=== PATIENT | female | born 1960 | race Caucasian/White ===

== ENCOUNTER → 2022-06-11 09:45 | Outpatient (BNVA) | payer MEDICARE, SELFPAY | PROVIDERS: Family Provider Nurse Practitioner; Visit Provider Nurse Practitioner Women's Health | DX: N95.0 Postmenopausal bleeding (principal); I10 Essential (primary) hypertension; E78.5 Hyperlipidemia, unspecified | CPT/HCPCS: 84443; 87624; 88305 ==

== ENCOUNTER 2022-09-02 07:45 | Day surgery (SDC) | payer MEDICARE, SELFPAY ==
[2022-08-31 09:21] VITALS: BMI 45.0
[2022-09-02] VITALS (8 sets, daily range): BP systolic 129–162; BP diastolic 59–98; PULSE 69–90; RESP 14–19; TEMP 36.3–36.9; O2SAT 92–99
[2022-09-02] MEDS: sodium chloride 0.9% 500 ML IV (08:34)
[2022-09-02] MEDS: scopolamine 1.5 Patch 1 PATCH TRANSDERMA (08:34)
[2022-09-02] MEDS: enoxaparin 30 mg/0.3 mL Syringe SUBCUT (08:34)
[2022-09-02 08:44] LABS: Bilirubin Urine Neg (Negative); Blood Urine Neg (Negative); Glucose Urine UA Norm (Normal); Ketones Urine Negative (Negative); Leukocyte Esterase Urine 2+ (Negative); Nitrate Urine Negative (Negative); Protein Urine 1+ (Negative); Specific Gravity, Urine 1.015 (1.005-1.030); Urine Appearance Clear (CLEAR); Urine Color Yellow (Yellow); Urobilinogen Urine Neg (Negative); pH Urine 6 (5-7)
[2022-09-02 08:55] LABS: Add Urine Culture? No; Add Urine Microscopic? YES; Bacteria Urine 1+ /hpf; RBC Urine 0-4 /hpf (0-2); Transitional Epi Cells Urine 0-4 /hpf; WBC Urine 0-4 /hpf (0-5)
[2022-09-02 09:16] LABS: Basophils % 0.6 %; Eosinophils # 0.2 10^3/uL (0.0-0.8); Eosinophils % 3.4 %; Hematocrit 43.4 % (37.0-47.0); Hemoglobin 14.1 g/dL (11.5-15.3); Lymphocytes # 1.5 10^3/uL (0.8-4.8); Lymphocytes % 22.4 %; Mean Corpuscular HGB Conc 32.5 g/dL (30.0-36.0); Mean Corpuscular Hemoglobin 29.3 pg (28.0-34.0); Mean Corpuscular Volume 90.2 fl (81-99); Mean Platelet Volume 9.7 fL (7.4-10.4); Monocytes # 0.7 10^3/uL (0.2-0.9); Monocytes % 10.1 %; Neutrophils # 4.34 10^3/uL (1.8-7.7); Neutrophils % 63.2 %; Nucleated Red Blood Cells % 0 %; Platelet Count 215 10^3/cmm (130-400); Red Blood Count 4.81 10^6/uL (4.1-5.3); Red Cell Distribution Width 14.6 % (12.1-15.1); White Blood Count 6.9 10^3/uL (4.0-10.0)
--- NOTE | 2022-09-02 09:23 | P.ANESASSM_ITS ---
Pre-Anesthetic Assessment Height/Weight: Height 1.59 m Weight 113.398 kg Temp Pulse Resp BP Pulse Ox O2 Del Method 98.5 F 70 18 162/98 94 09/02/22 08:09 09/02/22 08:09 09/02/22 08:09 09/02/22 08:09 09/02/22 08:09 09/02/22 08:09 Preop Diagnosis: Postmenopausal bleeding, endometrial polyp Operation Date: 09/02/22 09:20 Proposed Procedures p Hysteroscopic polypectomy [facility] Myosure 90117,N84.0(Not Applicable) - Skinny Momin MD Familial anesthetic complications: None Was Beta Héctor taken within 24 hours: N/A Was Clonidine taken within 24 hours: N/A Last intake: Intake Last Liquid Date 09/01/22 Last Liquid Time 19:00 Last Solid Date 09/01/22 Last Solid Time 19:00 Social No alcohol and No tobacco Exam alert, oriented x 3, clear to auscultation bilaterally and regular rate & rhythm Airway Mallampati: Class III Dentition: other (none) CV/HEM Hypertension Metabolic Hyperlipidemia and Morbid Obesity Neuropsych Cerebrovascular Accident Anesthetic Plan ASA status: 3 Anesthesia: General Risk of > 500 ml blood loss (7ml/kg in children): No Medications/Allergies Home Medications Medication Instructions Recorded Confirmed Last Taken Type acetaminophen 325 mg capsule 325 mg PO QID PRN Pain 06/11/22 09/02/22 08/25/22 History (Tylenol) aspirin 81 mg tablet,delayed 81 mg PO DAILY 06/11/22 09/02/22 08/30/22 History release (Adult Aspirin Regimen) docusate sodium 100 mg capsule 100 mg PO DAILY 06/11/22 09/02/22 09/01/22 History (Dulcolax Stool Softener (docusate)) hydrochlorothiazide 12.5 mg capsule 12.5 mg PO DAILY 06/11/22 09/02/22 09/01/22 History losartan 100 mg tablet 100 mg PO DAILY 06/11/22 09/02/22 09/01/22 History lovastatin 40 mg tablet 40 mg PO DAILY 06/11/22 09/02/22 09/01/22 History ynoheose-sfz-rlqtx ac 400 1 tab PO DAILY 06/11/22 09/02/22 09/01/22 History mcg-calcium carb 500 mg-vit K1 20 mcg tablet (Women's 50 Plus Multivitamin) Allergies Allergy/AdvReac Type Severity Reaction Status Date / Time acetaminophen [From [place]] Allergy ADR-Itching Verified 09/02/22 08:06 amoxicillin Allergy ADR-Itching Verified 09/02/22 08:06 cefdinir Allergy ADR-Diarrhe Verified 09/02/22 08:06 a ezetimibe Allergy ADR-Itching Verified 09/02/22 08:06 hydrocodone [From [place]] Allergy ADR-Itching Verified 09/02/22 08:06 pravastatin Allergy Unknown Verified 09/02/22 08:06 propoxyphene Allergy ADR-Itching Verified 09/02/22 08:06 [facility] Anesthesia Medical History (Updated 08/15/22 @ 20:16 by Skinny Momin MD) Cognitive and behavioral changes (~2013) Status post CVA Expressive aphasia History of CVA (cerebrovascular accident) (~11/2013) Hypertension Inflammatory arthritis Mixed hyperlipidemia No pertinent past medical history neghx: dm,thyroid,dvt/pe PCP: Mila Trujillo Surgical History (Updated 07/01/22 @ 10:55 by Briana Curry APN, ROZINA) H/O bladder repair surgery reports mesh placed Hx of section (~1987) Hx of cholecystectomy (~2014) Hx of colonoscopy Hx of right knee surgery (~2014) Hx of tubal ligation (~1987) Family History Father Diabetes Stroke Mother Heart disease Hypercholesteremia Hypertension Denies family history of Colon cancer Ovarian cancer Breast cancer Uterine cancer Thyroid disease Social History Smoking and tobacco status: never smoked Data Anesthesia : 09/02/22 08:35 09/02/22 08:35 Short CBC 09/02/22 Range/Units 08:35 WBC 6.9 (4.0-10.0) 10^3/uL Hgb 14.1 (11.5-15.3) g/dL Hct 43.4 (37.0-47.0) % MCV 90.2 (81-99) fl Plt Count 215 (130-400) 10^3/cmm Neut % (Auto) 63.2 % Neut # (Auto) 4.34 (1.8-7.7) 10^3/uL Urine 09/02/22 Range/Units 08:05 Urine Color Yellow (Yellow) Urine Appearance Clear (CLEAR) Urine pH 6 (5-7) Ur Specific [place] 1.015 (1.005-1.030) Urine Protein 1+ H (Negative) Urine Glucose (UA) Norm (Normal) Urine Ketones Negative (Negative) Urine Nitrate Negative (Negative) Urine Bilirubin Neg (Negative) Ur Leukocyte Esterase 2+ H (Negative) Urine RBC 0-4 H (0-2) /hpf Urine WBC 0-4 H (0-5) /hpf Cardiac Studies: No Data to Display
[2022-09-02] MEDS: vancomycin 1,000 MG in sodium chloride 0.9% 250 ML 250 MG IV (10:06)
[2022-09-02 10:29] LABS: Alanine Aminotransferase 17 U/L (0-33); Albumin Level 3.6 g/dL (3.5-5.2); Alkaline Phosphatase 85 U/L (35-105); Anion Gap 12.9 (5-19); Aspartate Amino Transferase 18 U/L (0-32); Blood Urea Nitrogen 7 mg/dL (8-23); Calcium 8.9 mg/dL (8.5-10.5); Carbon Dioxide 30 mmol/L (22-29); Chloride 103 mmol/L (98-107); Globulin 2.7 g/dL (1.3-4.6); Glomerular Filtration Rate 72.7 mL/min (90-130); Glucose 106 mg/dL (65-115); Osmolality Calculated 292 mOsm/kg (285-295); Potassium 3.9 mmol/L (3.5-5.1); Sodium 142 mmol/L (136-145); Total Bilirubin 0.6 mg/dL (0.15-1.2); Total Protein 6.3 g/dL (6.6-8.7)
--- NOTE | 2022-09-02 10:31 | P.HPUD_ITS ---
Surgery/Procedure H&P Update DATE OF PROCEDURE: September 02, 2022 DATE H&P PERFORMED: 08/30/22 H&P UPDATE INFORMATION: I have reviewed H&P completed within last 30 days, I have examined patient prior to procedure and No changes to prior documentation PREOP DIAGNOSIS: Postmenopausal bleeding, endometrial polyp PLANNED PROCEDURE: Operation Date: 09/02/22 09:20 Proposed Procedures p Hysteroscopic polypectomy [facility] Myosure 82042,N84.0(Not Applicable) - Skinny Momin MD
--- NOTE | 2022-09-02 11:34 | PM.OP ---
Operative Report Date of procedure: September 02, 2022 Pre-op diagnosis: Preop Diagnosis Postmenopausal bleeding, endometrial polyp Post-op diagnosis: Same as above Post-op findings: Endometrial polyp Procedure done: Hysteroscopy Hysteroscopic polypectomy Specimens removed/disposition: Endometrial polyp Surgeon: Skinny Momin MD Estimated blood loss (mL): 10 IV fluids (mL): 1,000 Complications: None Brief History: Mrs. Hughes 62-year-old female with postmenopausal bleeding diagnosed with endometrial polyp Procedure: After informed consent, the risks included but were not limited to bleeding, infection, injury to internal organs. The patient was counseled on a possible laparotomy and on the potential need for hysterectomy. The patient expressed understanding of the risks involved, all questions were answered, and the patient consented to the procedure. The patient was taken to the operating room where general anesthesia was administered. She was placed in the dorsal lithotomy position and prepped and draped in sterile fashion. A time out procedure was performed. The patient was examined under anesthesia and found to have a normal uterus with normal adnexa. A sterile weight speculum was placed in the vagina. The uterus was then gently sounded to 9 cm, and the cervix was dilated. The 0 degrees MyoSure hysteroscope was advanced gently to the uterine fundus while visualizing the monitor. Survey of the uterine cavity showed: a pedunculated endometrial polyp on posterior wall, the fundus shows atrophic endometrium; left ostium was visualized, and lateral wall with atrophic endometrium; right ostium visualized, and lateral wall with atrophic endometrium; anterior and posterior quinn are with atrophic endometrium; endocervical canal is normal. The MyoSure device was advanced and the direct visualization the polyp was morcellated without complication. At the end of morcellation the fluid deficit was 243 mL and was estimated at approximately 200 mL were on the floor. There was minimal bleeding noted and the tenaculum removed with goad hemostasis noted. The patient tolerated the procedure well. The patient was taken to the recovery area in stable condition.
--- NOTE | 2022-09-02 13:59 | ANE.PACU2 ---
Inpatient post-anesthesia follow up: Airway intact: Yes Vital signs: Temperature 97.7 F Pulse Rate 72 Respiratory Rate 18 Blood Pressure 129/70 Pulse Oximetry 94 Oxygen Delivery Me thod Room Air Oxygen Flow Rate 6 Fraction of Inspir ed Oxygen Hydration adequate: Yes Nausea and vomiting: No Pain level: 1 Mental status: Baseline
== END 2022-09-02 12:48 | disposition home or self-care (01) ==
PROVIDERS: PCP Family Medicine; Visit Provider Obstetrics & Gynecology
PROC: 0UDB8ZZ Extraction of Endometrium, Via Natural or Artificial Opening Endoscopic (ICD-10-PCS; CPT 58558; principal; 2022-09-02 09:10)
DX: N93.9 Abnormal uterine and vaginal bleeding, unspecified (principal); I10 Essential (primary) hypertension; E66.01 Morbid (severe) obesity due to excess calories; Z68.42 Body mass index [BMI] 45.0-49.9, adult; Z86.73 Personal history of transient ischemic attack (TIA), and cerebral infarction without residual deficits; E78.2 Mixed hyperlipidemia; Z79.82 Long term (current) use of aspirin
CPT/HCPCS: 58558; 36415; 80053; 81001; 85025; 86850; 86900; 88305; J1100; J1650; J2405; J2704; J2710; J3010; J3370; J3490; J7040; J7050

== ENCOUNTER 2022-10-27 09:59 | Inpatient (IN) | payer MEDICARE, SELFPAY ==
[2022-10-25 13:30] VITALS: BMI 43.5
[2022-10-25 14:18] LABS: Basophils # 0.1 10^3/uL (0.0-0.1); Basophils % 0.7 %; Eosinophils # 0.4 10^3/uL (0.0-0.8); Eosinophils % 5.6 %; Hematocrit 45.3 % (37.0-47.0); Hemoglobin 14.9 g/dL (11.5-15.3); Lymphocytes # 1.5 10^3/uL (0.8-4.8); Lymphocytes % 19.4 %; Mean Corpuscular HGB Conc 32.9 g/dL (30.0-36.0); Mean Corpuscular Hemoglobin 28.9 pg (28.0-34.0); Mean Corpuscular Volume 87.8 fl (81-99); Mean Platelet Volume 9.5 fL (7.4-10.4); Monocytes # 0.6 10^3/uL (0.2-0.9); Monocytes % 8.3 %; Neutrophils # 4.92 10^3/uL (1.8-7.7); Neutrophils % 65.7 %; Nucleated Red Blood Cells % 0 %; Platelet Count 260 10^3/cmm (130-400); Red Blood Count 5.16 10^6/uL (4.1-5.3); Red Cell Distribution Width 14.6 % (12.1-15.1); White Blood Count 7.5 10^3/uL (4.0-10.0)
[2022-10-25 14:38] LABS: Urine Color Straw (Yellow)
[2022-10-25 14:39] LABS: Add Urine Microscopic? YES; Bilirubin Urine Neg (Negative); Blood Urine 3+ (Negative); Glucose Urine UA Norm (Normal); Ketones Urine Negative (Negative); Leukocyte Esterase Urine Trace (Negative); Nitrate Urine Negative (Negative); Protein Urine Neg (Negative); Urine Appearance Clear (CLEAR); Urobilinogen Urine Norm (Negative); pH Urine 6 (5-7)
[2022-10-25 14:40] LABS: Alanine Aminotransferase 22 U/L (0-33); Alkaline Phosphatase 110 U/L (35-105); Anion Gap 14.7 (5-19); Aspartate Amino Transferase 17 U/L (0-32); Bacteria Urine TRACE /hpf; Blood Urea Nitrogen 13 mg/dL (8-23); Calcium 9.9 mg/dL (8.5-10.5); Carbon Dioxide 28 mmol/L (22-29); Chloride 100 mmol/L (98-107); Globulin 3.3 g/dL (1.3-4.6); Glomerular Filtration Rate 72.7 mL/min (90-130); Glucose 98 mg/dL (65-115); Osmolality Calculated 288 mOsm/kg (285-295); Potassium 3.7 mmol/L (3.5-5.1); RBC Urine 0-4 /hpf (0-2); Sodium 139 mmol/L (136-145); Squamous Epithelial Cell Urine RARE /hpf (0-5); Total Bilirubin 0.5 mg/dL (0.15-1.2); Total Protein 7.3 g/dL (6.6-8.7); WBC Urine 0-4 /hpf (0-5)
[2022-10-25 14:41] LABS: Add Urine Culture? No
--- NOTE | 2022-10-25 17:06 | P.ANESASSM_ITS ---
Pre-Anesthetic Assessment Height/Weight: Height 1.59 m Weight 109.769 kg Preop Diagnosis: Postmenopausal bleeding, endometrial polyp Operation Date: 10/27/22 07:00 Proposed Procedures p Total abdominal hysterectomy, bilateral salpingo-ophorectomy 87751 N95.0,N85 .2(Not Applicable) - Skinny Momin MD s Salpingo Oophorectomy (Open)(Bilateral) - Skinny Momin MD Familial anesthetic complications: Slow to wake up Was Beta Héctor taken within 24 hours: N/A Was Clonidine taken within 24 hours: N/A Social No alcohol and No tobacco Exam alert, oriented x 3, clear to auscultation bilaterally and regular rate & rhythm Airway Submandibular: within normal limits Cervical ROM: within normal limits Mallampati: Class II Dentition: false CV/HEM Hypertension Metabolic Hyperlipidemia and Morbid Obesity Musc/skel Osteoarthritis/DJD Neuropsych Cerebrovascular Accident and Deficit (decreased sensation) Anesthetic Plan ASA status: 3 Anesthesia: General Medications/Allergies Home Medications Medication Instructions Recorded Confirmed Last Taken Type acetaminophen 325 mg capsule 325 mg PO QID PRN Pain 06/11/22 10/25/22 08/25/22 History (Tylenol) aspirin 81 mg tablet,delayed 81 mg PO DAILY 06/11/22 10/25/22 10/25/22 History release (Adult Aspirin Regimen) docusate sodium 100 mg capsule 100 mg PO DAILY 06/11/22 10/25/22 10/25/22 History (Dulcolax Stool Softener (docusate)) hydrochlorothiazide 12.5 mg capsule 12.5 mg PO DAILY 06/11/22 10/25/22 10/25/22 History losartan 100 mg tablet 100 mg PO DAILY 06/11/22 10/25/22 10/25/22 History lovastatin 40 mg tablet 40 mg PO DAILY 06/11/22 10/25/22 10/24/22 History mpwexunu-uoy-ctzdt ac 400 1 tab PO DAILY 06/11/22 10/25/22 10/25/22 History mcg-calcium carb 500 mg-vit K1 20 mcg tablet (Women's 50 Plus Multivitamin) ibuprofen 800 mg tablet 800 mg PO TID PRN pain #60 tabs 09/02/22 10/25/22 10/24/22 Rx Allergies Allergy/AdvReac Type Severity Reaction Status Date / Time acetaminophen [From [place]] Allergy ADR-Itching Verified 10/25/22 11:20 amoxicillin Allergy ADR-Itching Verified 10/25/22 11:20 cefdinir Allergy ADR-Diarrhe Verified 10/25/22 11:20 a ezetimibe Allergy ADR-Itching Verified 10/25/22 11:20 hydrocodone [From [place]] Allergy ADR-Itching Verified 10/25/22 11:20 pravastatin Allergy Unknown Verified 10/25/22 11:20 propoxyphene Allergy ADR-Itching Verified 10/25/22 11:20 [facility] Anesthesia Medical History (Updated 09/14/22 @ 11:49 by Skinny Momin MD) Aftercare following surgery of the genitourinary system Cognitive and behavioral changes (~2013) Status post CVA Expressive aphasia History of CVA (cerebrovascular accident) (~11/2013) Hypertension Inflammatory arthritis Mixed hyperlipidemia No pertinent past medical history neghx: dm,thyroid,dvt/pe PCP: Mila Trujillo Surgical History (Updated 10/25/22 @ 11:22 by Mireya Panchal RN) H/O bladder repair surgery reports mesh placed Hx of section (~1987) Hx of cholecystectomy (~2014) Hx of colonoscopy Hx of right knee surgery (~2014) Hx of tubal ligation (~1987) Status post hysteroscopic polypectomy 09/14/2022: Hysteroscopy and hysteroscopic polypectomy performed by Dr. Momin at [facility] Family History Father Diabetes Stroke Mother Heart disease Hypercholesteremia Hypertension Denies family history of Colon cancer Ovarian cancer Breast cancer Uterine cancer Thyroid disease Social History Smoking and tobacco status: never smoked Data Anesthesia 10/25/22 13:44 10/25/22 13:44 Short CBC 10/25/22 Range/Units 13:44 WBC 7.5 (4.0-10.0) 10^3/uL Hgb 14.9 (11.5-15.3) g/dL Hct 45.3 (37.0-47.0) % MCV 87.8 (81-99) fl Plt Count 260 (130-400) 10^3/cmm Neut % (Auto) 65.7 % Neut # (Auto) 4.92 (1.8-7.7) 10^3/uL BMP 10/25/22 13:44 Sodium 139 Potassium 3.7 Chloride 100 Carbon Dioxide 28 BUN 13 Creatinine 0.8 Glucose 98 Calcium 9.9 Liver Function 10/25/22 Range/Units 13:44 Total Bilirubin 0.5 (0.15-1.2) mg/dL AST 17 (0-32) U/L ALT 22 (0-33) U/L Alkaline Phosphatase 110 H (35-105) U/L Albumin 4.0 (3.5-5.2) g/dL Urine 10/25/22 Range/Units 13:44 Urine Color Straw (Yellow) Urine Appearance Clear (CLEAR) Urine pH 6 (5-7) Ur Specific [place] 1.010 (1.005-1.030) Urine Protein Neg (Negative) Urine Glucose (UA) Norm (Normal) Urine Ketones Negative (Negative) Urine Nitrate Negative (Negative) Urine Bilirubin Neg (Negative) Ur Leukocyte Esterase Trace H (Negative) Urine RBC 0-4 H (0-2) /hpf Urine WBC 0-4 H (0-5) /hpf Blood Bank 10/25/22 13:44 Blood Type O Positive Rho(D) Type Positive Antibody Screen Negative Cardiac Studies: No Data to Display
[2022-10-27] VITALS (20 sets, daily range): BP systolic 117–162; BP diastolic 60–94; PULSE 56–71; RESP 15–20; TEMP 36.1–36.9; O2SAT 90–98
[2022-10-27] MEDS: scopolamine 1.5 Patch 1 PATCH TRANSDERMA (06:08)
[2022-10-27] MEDS: sodium chloride 0.9% 500 ML IV (06:08)
[2022-10-27] MEDS: enoxaparin 30 mg/0.3 mL Syringe SUBCUT (06:10)
--- NOTE | 2022-10-27 06:43 | W.PM.OPSUD ---
Surgery/Procedure H&P Update DATE OF PROCEDURE: October 27, 2022 DATE H&P PERFORMED: 10/25/22 H&P UPDATE INFORMATION: I have reviewed H&P completed within last 30 days, I have examined patient prior to procedure and No changes to prior documentation PREOP DIAGNOSIS: Postmenopausal bleeding, endometrial hyperplasia with atypia PLANNED PROCEDURE: Operation Date: 10/27/22 07:00 Proposed Procedures p Total abdominal hysterectomy, bilateral salpingo-ophorectomy 31460 N95.0,N85.2(Not Applicable) - Skinny Momin MD s Salpingo Oophorectomy (Open)(Bilateral) - Skinny Momin MD
[2022-10-27] MEDS: levofloxacin-dextrose 5 % 500 MG/100 ML PREMIX 100 MG IV (07:00)
[2022-10-27] MEDS: vancomycin 1,000 MG in sodium chloride 0.9% 250 ML 250 MG IV (07:00)
--- NOTE | 2022-10-27 07:32 | SUR.OPER ---
called and notified him of surgical start.
[2022-10-27] MEDS: sodium chloride 0.9% 250 mL Bag 100 ML XX (07:38)
--- NOTE | 2022-10-27 07:48 | P.ANESUD_ITS ---
Pre-Anesthetic Update Pre-Anesthetic Assessment: Date of Surgery/Procedure: 10/27/22 Preop Kori gnosis: Postmenopausal bleeding, endometrial hyperplasia with atypia Proposed Procedure: Operation Date: 10/27/22 07:00 Proposed Procedures p Total abdominal hysterectomy, bilateral salpingo-ophorectomy 55706 N95.0,N85.2(Not Applicable) - Skinny Momin MD s Salpingo Oophorectomy (Open)(Bilateral) - Skinny Momin MD Any changes to Pre-Anesthetic Assessment?: No Last Intake: Intake Last Liquid Date 10/26/22 Last Liquid Time 19:00 Last Solid Date 10/27/22 Last Solid Time 19:00 Labs Last 48hrs: Short CBC 10/25/22 Range/Units 13:44 WBC 7.5 (4.0-10.0) 10^3/ uL Hgb 14.9 (11.5-15.3) g/dL Hct 45.3 (37.0-47.0) % MCV 87.8 (81-99) fl Plt Count 260 (130-400) 10^3/c mm Neut % (Auto) 65.7 % Neut # (Auto) 4.92 (1.8-7.7) 10^3/u L BMP 10/25/22 13:44 Sodium 139 Potassium 3.7 Chloride 100 Carbon Dioxide 28 BUN 13 Creatinine 0.8 Glucose 98 Calcium 9.9 Liver Function 10/25/22 Range/Units 13:44 Total Bilirubin 0.5 (0.15-1.2) mg/dL AST 17 (0-32) U/L ALT 22 (0-33) U/L Alkaline Phosphata se 110 H (35-105) U/L Albumin 4.0 (3.5-5.2) g/dL Urine 10/25/22 Range/Units 13:44 Urine Color Straw (Yellow) Urine Appearance Clear (CLEAR) Urine pH 6 (5-7) Ur Specific Gravit y 1.010 (1.005-1.030) Urine Protein Neg (Negative) Urine Glucose (UA) Norm (Normal) Urine Ketones Negative (Negative) Urine Nitrate Negative (Negative) Urine Bilirubin Neg (Negative) Ur Leukocyte Leigha ase Trace H (Negative) Urine RBC 0-4 H (0-2) /hpf Urine WBC 0-4 H (0-5) /hpf Blood Bank 10/25/22 13:44 Blood Type O Positive Rho(D) Type Positive Antibody Screen Negative Vitals: Temperature 97.0 F L 10/27/22 06:01 Temperature Source Temporal Artery S can 10/27/22 06:01 Pulse Rate 66 10/27/22 06:01 Respiratory Rate 16 10/27/22 06:01 Blood Pressure 162/94 10/27/22 06:01 Blood Pressure Isamar n 116 10/27/22 06:01 Pulse Oximetry 95 10/27/22 06:01 Oxygen Delivery Me thod 10/27/22 06:01 Exam: Pre-Anes Outpt Exam: alert, oriented x 3, clear to auscultation bilaterally and regular rate & rhythm Cardiac Studies: No Data to Display
--- NOTE | 2022-10-27 09:18 | P.OP_ITS ---
Operative Report Date of procedure: October 27, 2022 Pre-op diagnosis: Preop Diagnosis Postmenopausal bleeding, endometrial hyperplasia with atypia Post-op diagnosis: Same as above Procedure done: Total abdominal hysterectomy with bilateral salpingo-oophorectomy. Specimens removed/disposition: Uterus, left and right fallopian tube and ovaries Surgeon: Skinny Momin MD Estimated blood loss (mL): 175 IV fluids (mL): 600 Urine output (mL): 250 Findings: Normal size uterus. Irregular shaped left ovary. Normal appearance right ovary and fallopian tube. Procedure: The patient was taken to the operating room, and after adequate level of general anesthesia was achieved, the patient was placed in the Trendelenburg position, prepped and draped in the usual sterile fashion. Subsequently, a Pfannenstiel incision was made and the incision was taken down to the fascia. The fascia was opened up sharply. The fascia was extended to the length of the incision using the Ornelas scissors. At this time, the rectus muscles were dissected from the fascia superiorly and inferiorly to the symphysis pubis. The midline rectus muscles were opened sharply and extended superiorly and inferiorly. The peritoneum was visualized, grasped, opened sharply, and extended superiorly and inferiorly towards the bladder. The abdominal contents were packed superiorly away from the operative site using the lap packs. At this time, the pelvic organs were noted. The inferior and superior blades were placed in place on the Kyaw self-retaining retractor. Bowel was packed away from the operative site. The fundus of the uterus was then grasped with a straight clamps and retracted out of the pelvic cavity into the abdominal site. At this point, Ju clamps were placed in both right and left adnexal regions. Subsequently, using the [email or web address] cautery unit, the round ligaments were grasped, cauterized, and dissected. The bladder flap was then formed and the bladder flap was pushed away down anteriorly over the lower uterine segment, pushed away from the operative site on both the right and left sides. Subsequently, the posterior leaf of the broad ligament was opened sharply and the Voyant instrument was then placed below the level of the ovary in both the right and left side, care being taken not to damage bowel or uterus and the infundibulopelvic ligament was then grasped, cauterized, and again dissected. Further dissection of the broad ligament was carried down posteriorly towards the uterine vessels. The bladder was pushed inferiorly down towards the vagina. Subsequently, the uterine vessels were then grasped again with the Voyant machine, cauterized, and dissected. The cardinal ligaments were further grasped, dissected, and suture ligated, again with the Voyant machine. At that point, the Voyant machine instrument was stopped and straight Zeppelin clamps were used on the cardinal ligaments down towards the uterosacral ligaments. The cardinal ligaments were grasped, dissected with a scalpel and then ligated with transfixion sutures with #1 Vicryl suture down to the uterosacral ligaments. The uterosacral ligaments were grasped, dissected, and suture ligated again with #1 Vicryl suture and transfixion sutures. At that time, the bladder had been pushed over the vagina and at this time right-angle Zeppelin clamps were placed on the vagina at the level of the cervix, and using the Shree scissors, the cervix was dissected away from the vagina. At this time, the vaginal cuff was then closed using interrupted sutures of #1 Vicryl suture from the midline to each lateral corner. After the good hemostasis had been achieved in the vaginal cuff, both the right and left adnexa was visualized and no more bleeding was noted. The cuff was intact with no bleeding noted. The bladder was visualized and no bleeding was noted. The Kyaw retractor was removed as well as the anterior and inferior blades. The lap packs were removed, and at this time, general closure of the abdomen was carried out. The peritoneum was closed with a 2-0 Vicryl suture and continuous running suture. The fascia was closed using a #1 Vicryl suture from each corner to the midline. Subcutaneous tissue was cauterized. No bleeding was noted. The subcutaneous tissue was then reapproximated using plain sutures and interrupted sutures, and the skin was closed using the Insorb absorbable subcuticular tori the patient tolerated the procedure well and was transferred to the recovery room in excellent condition. The patient returned to the floor for recovery.
[2022-10-27] MEDS: HYDROmorphone 1 mg/mL INJ 1 mL 0.5 MG IVP ×2 (10:20→10:40)
--- NOTE | 2022-10-27 11:57 | ANE.PACU2 ---
Inpatient post-anesthesia follow up: Airway intact: Yes Vital signs: Temperature 98 F Pulse Rate 59 Respiratory Rate 16 Blood Pressure 121/63 Pulse Oximetry 93 Oxygen Delivery Me thod Nasal Cannula Oxygen Flow Rate 2.0 Fraction of Inspir ed Oxygen Hydration adequate: Yes Nausea and vomiting: No Pain level: 3 Mental status: Baseline
[2022-10-27] MEDS: ketorolac 30 mg/mL INJ IVP ×2 (14:11→17:41)
[2022-10-27] MEDS: dextrose 5%-lactated ringers 1,000 ML 125 ML IV (14:12)
[2022-10-27] MEDS: HYDROcodone-acetaminophen 5-325 mg Tablet PO (16:18)
[2022-10-27] MEDS: docusate sodium 100 mg Capsule PO (17:41)
[2022-10-27] MEDS: hydroCHLOROthiazide 25 mg Tablet 12.5 MG PO (20:22)
[2022-10-27] MEDS: dextrose 5%-lactated ringers 1,000 ML 100 ML IV (20:23)
[2022-10-28] VITALS: BP 135/75; PULSE 58; RESP 16; TEMP 37; O2SAT 97
[2022-10-28] MEDS: ketorolac 30 mg/mL INJ IVP (00:04)
[2022-10-28 03:09] VITALS: BP 125/70; PULSE 58; RESP 18; TEMP 36.7; O2SAT 95
[2022-10-28 04:57] LABS: Hematocrit 37.7 % (37.0-47.0); Hemoglobin 12.2 g/dL (11.5-15.3); Mean Corpuscular HGB Conc 32.4 g/dL (30.0-36.0); Mean Corpuscular Hemoglobin 29.1 pg (28.0-34.0); Mean Platelet Volume 9.1 fL (7.4-10.4); Platelet Count 224 10^3/cmm (130-400); Red Blood Count 4.19 10^6/uL (4.1-5.3); Red Cell Distribution Width 14.7 % (12.1-15.1); White Blood Count 15.5 10^3/uL (4.0-10.0)
[2022-10-28] MEDS: dextrose 5%-lactated ringers 1,000 ML 100 ML IV (05:32)
[2022-10-28 07:45] VITALS: BP 142/75; PULSE 58; RESP 13; TEMP 36.6; O2SAT 95
[2022-10-28] MEDS: hydroCHLOROthiazide 25 mg Tablet 12.5 MG PO (08:46)
[2022-10-28] MEDS: atorvastatin 40 mg Tablet PO (08:47)
[2022-10-28] MEDS: docusate sodium 100 mg Capsule PO ×2 (08:47→17:40)
[2022-10-28] MEDS: losartan 50 mg Tablet 100 MG PO (08:47)
[2022-10-28] MEDS: aspirin 81 mg EC Tablet PO (08:47)
[2022-10-28] MEDS: ibuprofen 800 mg tablet PO ×2 (08:47→17:40)
--- NOTE | 2022-10-28 10:36 | PC.CHAP ---
Pastoral Care Encounter/Spiritual Assessment Type of Contact [] Declined plastics supervisor visit [] Patient/Family/Request visit [] Outpatient visit [] Follow-up visit [] Physician referral [] Code/Alert [x] Routine visit [] Staff referral [] Actively dying [] Patient sleeping [] Family support [] [] Out of room [] Palliative care [] [x] Receiving care in room [] Pre-surgical visit [] Trauma [] Long length of stay [] ICU visit [] Other: Relational/Emotional Strength [x] Patient feels connected with others/family/visitors/staff [] Distress [] Loneliness/isolation [] Abandonment Spirituality of Patient [x] Person of Simran [] Attends Temple of their [place] [x] Believes in Prayer [] Reads Bible or Mormon materials [] There are Spiritual issues to be addressed Flame Degreaser Interventions [x] Prayer [x] Active listening [x] Non-anxious presence [x] Spiritual/emotional support [] Crisis/trauma care [x] Spiritual counseling [] Bereavement support [] Provided bereavement packet [] Provided Bible/devotional materials [] Provided toy/stuffed animal, coloring book to patient or family member [] Provided Communion [] Anointing/[place] [] Salvation [x] Completed spiritual assessment [] Other: Impact on Illness or Injury [] Angry [] Fearful [] Anxious [] Often cries [] Exhaustion [] Unable to work [] Unable to attend mormon [] Unable to walk/stand [] Unable to read [] Unable to drive [] Unable to eat/drink [] Unable to sleep [] Unable to be with family [] Patient intubated [] Other: Summary in some pain had a historractum has a good attitude will go home Time spent with patient 10 mins
[2022-10-28 12:00] VITALS: BP 114/65; PULSE 61; RESP 14; TEMP 36.8; O2SAT 94
--- NOTE | 2022-10-28 18:33 | P.PN_ITS ---
Subjective Subjective: This is a 63-year-old female status post total abdominal hysterectomy and bilateral salpingo-oophorectomy. Refers pain under control. Refers she only had liquid diet Vitals/I&O/Wt Last Vital Signs Temp 98.2 F 10/28/22 12:00 Pulse 61 10/28/22 12:00 Resp 14 10/28/22 12:00 BP 114/65 10/28/22 12:00 Pulse Ox 94 10/28/22 12:00 O2 Del Method 10/28/22 07:45 O2 Flow Rate 2 10/28/22 03:09 10/28/22 10/28/22 10/28/22 06:59 14:59 22:59 Intake Total 915 / 3627.917 240 / 240 946.667 / 1186.667 Output Total 400 / 1025 150 / 150 Balance 515 / 2602.917 90 / 90 946.667 / 1036.667 Physical Exam Narrative: GA: Alert and oriented ?3. HEENT: WNL. Heart: Regular rate and rhythm. Lungs: Clear to auscultation bilaterally. Abdomen: Bowel sounds present, minimal tenderness, incision clean and dry, no redness, pain or edema. DRUPAL PHP DEVELOPER: No bleeding. Extremities: No edema, no cyanosis, no calves pain. Urinary Catheter Management: Kennedy: Cath Placed During This Visit: yes, but has since been removed by the nurse Reason for Continuing Indwelling Catheter: Perioperative Use in Selected Surgeries Urinary Catheter Date of Insertion: 10/27/22 Urinary Catheter Time of Insertion: 07:15 Date Urinary Catheter Removed: 10/28/22 Time Urinary Catheter Discontinued: 06:45 Data 10/28/22 04:51 10/25/22 13:44 A&P Assessment and plan (1) Status post abdominal hysterectomy and salpingo-oophorectomy: Mrs. Ramirez 63-year-old female status post total abdominal hysterectomy with bilateral salpingo-oophorectomy postoperative day 1. Overnight observation uneventful. Have been tolerated liquid diet well. Ambulating without diff iculty. She is happy milliliter. Stable postoperative day 1. I spent 35 minutes with the patient in discussion and counseling as documented above This documentation was created by [employer] blood bank technician software (known for inherent blood bank technician error). Every effort was made to assure accuracy of blood bank technician. Any obvious errors or omissions should be clarified with the author of the document. Plan Plan to discharge home tomorrow Attestations Medical Necessity Statement*: In my professional opinion per admitting diagnosis Coding Level of Care Code Acute Special Procedure Technologist for Trevag Fwd Diagnoses Status post abdominal hysterectomy and salpingo-oophorectomy
[2022-10-28 20:55] VITALS: BP 151/81; PULSE 79; RESP 18; TEMP 36.8; O2SAT 95
[2022-10-29] MEDS: ibuprofen 800 mg tablet PO ×2 (02:18→08:49)
[2022-10-29 05:48] VITALS: BP 152/76; PULSE 74; TEMP 36.8
--- NOTE | 2022-10-29 07:41 | PM.OBGYDC ---
Discharge Providers MACHINE II ENGRAVER Date of Admission: 10/27/22 09:59 Date of Discharge: 10/29/22 Attending Provider at Admission: Skinny Momin MD Attending Provider at Discharge: Skinny Momin MD Primary MACHINE II ENGRAVER: Skinny Momin MD Primary Care Provider: Geronimo Yen Diagnoses at Discharge Discharge Diagnosis (1) Status post abdominal hysterectomy and salpingo-oophorectomy: Status: Acute Reason for Visit Reason for Visit: N95.0 Hospital Course Hospital Course Mrs. Hughes 62-year-old female with a history of postmenopausal bleeding and a biopsy with hyperplasia with atypia was admitted for total abdominal hysterectomy with bilateral salpingo-oophorectomy. The procedures were performed without complication. Her overnight observation was uneventful. She is afebrile and hemodynamically stable postoperative day 2. Tolerating diet well. Ambulating without difficulty. She was counseled regarding pelvic rest for 6 weeks (no sex, no tampons, no vaginal douches). Return to the emergency room if any fever, increased bleeding or pain. I was also advised the limitations on heavy lifting to 10 pounds. Physical Exam Narrative: GA: Alert and oriented ?3. HEENT: WNL. Heart: Regular rate and rhythm. Lungs: Clear to auscultation bilaterally. Abdomen: Bowel sounds present, minimal tenderness, incision clean and dry, no redness, pain or edema. COAL SHOVELER: No bleeding. Extremities: No edema, no cyanosis, no calves pain. Urinary Catheter Management: Kennedy: Cath Placed During This Visit: yes, but has since been removed by the nurse Reason for Continuing Indwelling Catheter: Perioperative Use in Selected Surgeries Urinary Catheter Date of Insertion: 10/27/22 Urinary Catheter Time of Insertion: 07:15 Date Urinary Catheter Removed: 10/28/22 Time Urinary Catheter Discontinued: 06:45 History History History 4 Term 3 1 Miscarriages/Ectopic 0 Living Children 3 Discharge Data Studies Completed and Pending Pending at discharge Category Date Time Status Pathology: Surgical [PTH] Routine Pth 10/27/22 08:48 Received Laboratory Results WBC 15.5 10^3/uL (4.0-10.0) H 10/28/22 04:51 RBC 4.19 10^6/uL (4.1-5.3) 10/28/22 04:51 Hgb 12.2 g/dL (11.5-15.3) 10/28/22 04:51 Hct 37.7 % (37.0-47.0) 10/28/22 04:51 MCV 90.0 fl (81-99) 10/28/22 04:51 MCH 29.1 pg (28.0-34.0) 10/28/22 04:51 MCHC 32.4 g/dL (30.0-36.0) 10/28/22 04:51 RDW 14.7 % (12.1-15.1) 10/28/22 04:51 Plt Count 224 10^3/cmm (130-400) 10/28/22 04:51 MPV 9.1 fL (7.4-10.4) 10/28/22 04:51 Neut % (Auto) 65.7 % 10/25/22 13:44 Lymph % (Auto) 19.4 % 10/25/22 13:44 [place] % (Auto) 8.3 % 10/25/22 13:44 Eos % (Auto) 5.6 % 10/25/22 13:44 Baso % (Auto) 0.7 % 10/25/22 13:44 Neut # (Auto) 4.92 10^3/uL (1.8-7.7) 10/25/22 13:44 Lymph # (Auto) 1.5 10^3/uL (0.8-4.8) 10/25/22 13:44 [place] # (Auto) 0.6 10^3/uL (0.2-0.9) 10/25/22 13:44 Eos # (Auto) 0.4 10^3/uL (0.0-0.8) 10/25/22 13:44 Baso # (Auto) 0.1 10^3/uL (0.0-0.1) 10/25/22 13:44 Nucleated RBC % (auto) 0 % 10/25/22 13:44 Nucleated RBCs # 0.0 /100WBC 10/25/22 13:44 Sodium 139 mmol/L (136-145) 10/25/22 13:44 Potassium 3.7 mmol/L (3.5-5.1) 10/25/22 13:44 Chloride 100 mmol/L (98-107) 10/25/22 13:44 Carbon Dioxide 28 mmol/L (22-29) 10/25/22 13:44 Anion Gap 14.7 (5-19) 10/25/22 13:44 BUN 13 mg/dL (8-23) 10/25/22 13:44 Creatinine 0.8 mg/dL (0.5-0.9) 10/25/22 13:44 GFR Calculation 72.7 mL/min (90-130) L 10/25/22 13:44 Glucose 98 mg/dL (65-115) 10/25/22 13:44 Calculated Osmolality 288 mOsm/kg (285-295) 10/25/22 13:44 Calcium 9.9 mg/dL (8.5-10.5) 10/25/22 13:44 Total Bilirubin 0.5 mg/dL (0.15-1.2) 10/25/22 13:44 AST 17 U/L (0-32) 10/25/22 13:44 ALT 22 U/L (0-33) 10/25/22 13:44 Alkaline Phosphatase 110 U/L (35-105) H 10/25/22 13:44 Total Protein 7.3 g/dL (6.6-8.7) 10/25/22 13:44 Albumin 4.0 g/dL (3.5-5.2) 10/25/22 13:44 Globulin 3.3 g/dL (1.3-4.6) 10/25/22 13:44 Urine Color Straw (Yellow) 10/25/22 13:44 Urine Appearance Clear (CLEAR) 10/25/22 13:44 Urine pH 6 (5-7) 10/25/22 13:44 Ur Specific [place] 1.010 (1.005-1.030) 10/25/22 13:44 Urine Protein Neg (Negative) 10/25/22 13:44 Urine Glucose (UA) Norm (Normal) 10/25/22 13:44 Urine Ketones Negative (Negative) 10/25/22 13:44 Urine Blood 3+ (Negative) H 10/25/22 13:44 Urine Nitrate Negative (Negative) 10/25/22 13:44 Urine Bilirubin Neg (Negative) 10/25/22 13:44 Urine Urobilinogen Norm mg/dL (Negative) 10/25/22 13:44 Ur Leukocyte Esterase Trace (Negative) H 10/25/22 13:44 Urine RBC 0-4 /hpf (0-2) H 10/25/22 13:44 Urine WBC 0-4 /hpf (0-5) H 10/25/22 13:44 Ur Squamous Epith Cells Rare /hpf (0-5) 10/25/22 13:44 Amorphous Sediment Not Reportable 10/25/22 13:44 Urine Bacteria Trace /hpf (NONE) 10/25/22 13:44 Blood Type O Positive 10/25/22 13:44 Rho(D) Type Positive 10/25/22 13:44 Antibody Screen Negative 10/25/22 13:44 Vitals Last Vital Signs Temp 98.2 F 10/29/22 05:48 Pulse 74 10/29/22 05:48 Resp 18 10/28/22 20:55 BP 152/76 10/29/22 05:48 Pulse Ox 95 10/28/22 20:55 O2 Del Method 10/28/22 20:55 O2 Flow Rate 2 10/28/22 03:09 Discharge Plan Discharge Patient Disposition: Home Condition: Stable Prescriptions: New docusate sodium [Colace] 100 mg capsule 100 mg PO BID Qty: 30 0RF ibuprofen 800 mg tablet 800 mg PO TID PRN (Reason: pain) Qty: 60 0RF Continued lovastatin 40 mg tablet 40 mg PO DAILY losartan 100 mg tablet 100 mg PO DAILY hydrochlorothiazide 12.5 mg capsule 12.5 mg PO DAILY aspirin [Adult Aspirin Regimen] 81 mg tablet,delayed release (DR/EC) 81 mg PO DAILY Women's 50 Plus Multivitamin 400 mcg-500 mg calcium-20 mcg tablet 1 tab PO DAILY docusate sodium [Dulcolax Stool Softener (dss)] 100 mg capsule 100 mg PO DAILY acetaminophen [Tylenol] 325 mg capsule 325 mg PO QID PRN (Reason: Pain) ibuprofen 800 mg tablet 800 mg PO TID PRN (Reason: pain) Qty: 60 0RF Discharge Orders: Discharge Order (Routine); Ordered 10/29/22 Ordered By: Skinny Momin Referrals: Skinny Momin MD [Physician] - 2 weeks Discharge Diet: Usual diet Discharge Activity: Limit activity as instructed Patient Instructions: Opioid Safety, Hysterectomy (GEN), Menopause (GEN), Salpingo-Oophorectomy (GEN) Activity Restrictions/Additional Instructions: 1. Please call [facility] on next working day to make your post-operative appointment in 2 weeks. 2. Please stay home until you come back to the clinic on first post-operative check up. 3. Please follow instructions on your medications CAREFULLY. 4. If you have abdominal incision, do not cover it unless dressing is necessary because of drainage. OK to shower, but avoid bath. Leave steri-strips until they fall off. If they are still on one week after surgery, you may remove them. 5. If you had vaginal surgery or vaginal repair, Dr. Momin may instruct you to take SITZ bath. 6. Yellow, blood tinged odorous vaginal discharge is usually normal after hysterectomy or vaginal surgeries. 7. No sexual intercourse, tampons, or douches until you are completely released from the post-operative care. 8. Avoid constipation by eating right and maybe using some Metamucil or Milk of Magnesia. 9. All prescription refills are given during the working hours. Please do no wait till it runs out. Call the clinic at [phone] before your medication runs out. The clinic will get in touch with your doctor to prescribe medications if necessary. 10. Please remain within 40 mile radius from our hospital because emergencies do happen now and then during the post-operative period. 11. If you have stairs at home, take one step at a time slowly and minimize the number of trips. It helps to stay in one floor for the next few days. No lifting except what you can lift by one hand until you are released from the post-operative care. 12. Driving is discouraged until you are well healed. It may be 3-4 weeks before you feel strong enough to drive. You should be able to turn and look through the rear window without pain and you should be able to push the brake pedal very hard without pain before you drive. No fast rules, but SAFETY should be your primary concern. DO NOT drive if you are on sedating medications such as narcotics. 13. Call the clinic (during working hours) to make urgent appointment or go to the Emergency room, if any of the following occurs: i. Vaginal bleeding becomes heavy, more than a period. ii. Incision becomes red and sore, or drains pus. iii. Your temperature is over 100.4 or you have chill. iv. IV site becomes red and swollen (a little ``knot?? is usually OK) v. Persistent nausea and vomiting vi. Persistent constipation or diarrhea vii. Rash or allergic reaction to medications. Discharge Attestations MACHINE II ENGRAVER Time Spent in Discharge Care*: greater than 30 min Coding Level of Care Code Acute Coremaker Floor for Chg Fwd Diagnoses Status post abdominal hysterectomy and salpingo-oophorectomy
[2022-10-29 08:48] VITALS: BP 144/76
[2022-10-29] MEDS: docusate sodium 100 mg Capsule PO (08:48)
[2022-10-29] MEDS: losartan 50 mg Tablet 100 MG PO (08:48)
[2022-10-29] MEDS: atorvastatin 40 mg Tablet PO (08:48)
[2022-10-29] MEDS: hydroCHLOROthiazide 25 mg Tablet 12.5 MG PO (08:50)
[2022-10-29] MEDS: aspirin 81 mg EC Tablet PO (08:50)
[2022-10-29 09:30] VITALS: BP 144/76; PULSE 78; RESP 16; TEMP 36.6; O2SAT 96
== END 2022-10-29 09:30 | disposition home or self-care (01) | DRG 743 ==
LOC: OBGYN 10:01 → MEDSURG 10-28 03:00 → OBGYN 10-28 15:29
PROVIDERS: Admitting Provider Obstetrics & Gynecology; PCP Family Medicine; Visit Provider Obstetrics & Gynecology
PROC: 0UT90ZZ Resection of Uterus, Open Approach (ICD-10-PCS; CPT 58150; principal; 2022-10-27 07:00)
PROC: 0UT90ZZ Resection of Uterus, Open Approach (ICD-10-PCS; CPT 58720; 2022-10-27 07:00)
DX: N85.02 Endometrial intraepithelial neoplasia [EIN] (principal); Z88.1 Allergy status to other antibiotic agents; Z88.5 Allergy status to narcotic agent; Z79.82 Long term (current) use of aspirin; I69.920 Aphasia following unspecified cerebrovascular disease; E78.2 Mixed hyperlipidemia
CPT/HCPCS: 36415; 51702; 80053; 81001; 85025; 85027; 86850; 86900; 88307; C9290; J1100; J1170; J1200; J1650; J1885; J1956; J2405; J2704; J2710; J3010; J3370; J3490; J7040; J7050; J7121; Q9968

== ENCOUNTER → 2025-06-10 11:08 | Outpatient (BNVA) | payer MEDICARE, SELFPAY | PROVIDERS: PCP Family Medicine; Visit Provider Specialist | DX: M17.12 Unilateral primary osteoarthritis, left knee (principal); E66.01 Morbid (severe) obesity due to excess calories; Z68.41 Body mass index [BMI] 40.0-44.9, adult | CPT/HCPCS: 73560; 73565; 99204 ==

== ENCOUNTER → 2025-06-21 13:35 | Outpatient (BNVA) | payer MEDICARE, SELFPAY | PROVIDERS: PCP Family Medicine; Visit Provider Nurse Practitioner Women's Health | DX: Z01.419 Encounter for gynecological examination (general) (routine) without abnormal findings (principal) | CPT/HCPCS: 80053; 82306; 82465; 83036; 83718; 83721; 84443; 85025 ==

== ENCOUNTER 2025-07-01 09:04 | Outpatient (CLI) | payer MEDICARE, SELFPAY ==
--- NOTE | 2025-07-01 09:40 | MM_ITS ---
WS: [id number] BILATERAL SCREENING DIGITAL TOMOSYNTHESIS MAMMOGRAM WITH CAD HISTORY: Z12.39 - Encounter for other screening for malignant neop... COMPARISON: 10/31/2023, 08/13/2022 Bilateral CC and MLO views with tomosynthesis and synthetic mammography submitted. Computer aided detection analyzed. Breast composition: There are scattered areas of fibroglandular density. No suspicious masses, microcalcifications or architectural distortion. Benign calcifications in each breast. MM/MM scr BI tomosynthesis [id number] IMPRESSION: BI-RADS: 2 - Benign. FOLLOW UP: 1 Year Follow-up
== END 2025-07-01 09:05 | disposition home or self-care (01) ==
LOC: RAD 09:07
PROVIDERS: PCP Family Medicine; Visit Provider Nurse Practitioner Women's Health
DX: Z12.31 Encounter for screening mammogram for malignant neoplasm of breast (principal); R92.323 Mammographic fibroglandular density, bilateral breasts; R92.1 Mammographic calcification found on diagnostic imaging of breast
CPT/HCPCS: 77063; 77067

== ENCOUNTER → 2025-07-12 09:13 | Outpatient (BNVA) | payer MEDICARE, SELFPAY | PROVIDERS: PCP Family Medicine; Visit Provider Specialist | DX: M17.12 Unilateral primary osteoarthritis, left knee (principal) | CPT/HCPCS: 20610; J1100; J2795; J3301; J9999 ==

== ENCOUNTER → 2025-10-09 08:27 | Outpatient (BNVA) | payer MEDICARE, SELFPAY | PROVIDERS: PCP Family Medicine; Visit Provider Specialist | DX: M17.12 Unilateral primary osteoarthritis, left knee (principal) | CPT/HCPCS: 20610; 99213; J7318 ==

== ENCOUNTER → 2025-11-02 12:09 | Outpatient (BNVA) | payer MEDICARE, SELFPAY | PROVIDERS: PCP Family Medicine | DX: R30.0 Dysuria (principal) | CPT/HCPCS: 81000 ==

== ENCOUNTER → 2025-11-18 14:41 | Outpatient (BNVA) | payer MEDICARE, SELFPAY | PROVIDERS: PCP Family Medicine; Visit Provider Specialist | DX: M17.12 Unilateral primary osteoarthritis, left knee (principal); E66.01 Morbid (severe) obesity due to excess calories; Z68.41 Body mass index [BMI] 40.0-44.9, adult | CPT/HCPCS: 73560; 73565; 99214 ==